=== PATIENT | male | born 1970 | race Caucasian/White ===

== ENCOUNTER 2023-09-13 22:18 | Emergency (ER) | payer BC ==
[~2023-09-13] VITALS: Ht 172.7 cm; Wt 81.6 kg
[2023-09-13] MEDS ORDERED: IBUPROFEN 600 MG TABLET ONE (23:41)
[2023-09-13] MEDS: IBUPROFEN 600 MG TABLET PO ONE (23:42)
[2023-09-14] MEDS ORDERED: IBUP-1953 PO (00:20)
[2023-09-14] MEDS ORDERED: HYDR-3972 PO (00:20)
[2023-09-14 00:27] VITALS: BP 132/86; TEMP 98.5; O2SAT 99
== END 2023-09-14 00:27 | disposition home or self-care (01) ==
LOC: ER 22:21
DX: S82.832A Other fracture of upper and lower end of left fibula, initial encounter for closed fracture (principal); I10 Essential (primary) hypertension; E11.9 Type 2 diabetes mellitus without complications; X50.1XXA Overexertion from prolonged static or awkward postures, initial encounter; Y93.01 Activity, walking, marching and hiking; Y92.89 Other specified places as the place of occurrence of the external cause; Y99.8 Other external cause status
CPT/HCPCS: 73610-TC